=== PATIENT | female | born 1960 | race Caucasian/White ===

== ENCOUNTER → 2016-07-31 | Day surgery (SDC) | payer OTHER ==
--- NOTE | 2016-08-01 12:34 | PATH ---
Surgical Pathology Report Patient Name: MERY CORNELL [facility]. Rec. #: [id number] /Age/Gender: 1960 (Age: 56) / F Account: [id number] Location: [facility] RADIOLOGY U Taken: 07/31/2016 Received: 07/31/2016 Reported: 08/01/2016 Physicians: Catracho Pierre M.D. Specimen(s) Received LEFT BREAST CORE BIOPSY 8:30, 7CM FN Clinical History Probably benign Final Diagnosis LEFT BREAST, 8:30, 7 CM FROM NIPPLE, NEEDLE CORE BIOPSY: BENIGN BREAST TISSUE WITH FIBROCYSTIC CHANGES INCLUDING STROMAL FIBROSIS, DUCTAL DILATATION, AND CYSTIC APOCRINE METAPLASIA. Electronically Signed Rip Marinelli M.D. Gross Description Received in formalin, labeled "left breast 8:30, 7 cmfn," are 3 be, cylindrical portions of fibroadipose tissue averaging 1.7 cm in length and 0.1 cm in diameter. The specimens are submitted in toto in one cassette. Time to formalin fixation: 2 minutes Total formalin fixation time: Approximately 8 hours. /07/31/2016 saudi07/31/2016
== END | disposition home or self-care (01) ==
LOC: FRADUS-SUR 08:32
PROVIDERS: ATTEND Internal Medicine
PROC: 0HBU3ZX Excision of Left Breast, Percutaneous Approach, Diagnostic (ICD-10-PCS; principal; 2016-07-31)
DX: D24.2 Benign neoplasm of left breast (principal); N60.12 Diffuse cystic mastopathy of left breast
CPT/HCPCS: 19083; 87899; 88305-TC; A4648; G0206-TC